=== PATIENT | female | born 1940 | race Caucasian/White ===

== ENCOUNTER 2020-05-29 02:10 | Outpatient (CLI) | payer OTHER, SELFPAY ==
[2020-05-29 18:25] LABS: SARS-CoV-2 RNA PCR Negative
== END 2020-05-29 02:11 | disposition home or self-care (01) ==
LOC: ANHCOVIDDT 02:10
PROVIDERS: Visit Provider Specialist
DX: Z01.812 Encounter for preprocedural laboratory examination (principal); Z20.828 Contact with and (suspected) exposure to other viral communicable diseases
CPT/HCPCS: 87635; C9803; U0003

== ENCOUNTER 2020-06-01 01:53 | Day surgery (SDC) | payer OTHER, SELFPAY ==
[2020-05-29 14:08] VITALS: BMI 37.3
[2020-06-01] VITALS (22 sets, daily range): BP systolic 124–166; BP diastolic 51–79; PULSE 55–67; RESP 12–19; TEMP 36.1–36.6; O2SAT 90–98; BMI 37.3
[2020-06-01 09:40] LABS: Basophils Percent Auto 0.2 % (0.2-1.2); Eosinophils Absolute Auto 0.1 K/mm3 (0-0.3); Eosinophils Percent Auto 0.6 % (0-4.4); Hematocrit 39.7 % (37.0-47.0); Hemoglobin 13.1 g/dL (12.0-15.0); Immature Granulocyte Absolute 0.02 K/mm3 (0.00-0.031); Immature Granulocyte Percent A 0.2 % (0-0.5); Lymphocytes Absolute Auto 1.74 K/mm3 (0.9-3.2); Lymphocytes Percent Auto 19.2 % (18.3-44.2); Mean Corpuscular Hemoglobin 29.8 pg (26-34); Mean Corpuscular Volume 90.2 fl (80-100); Mean Platelet Volume 10.5 fl (7.4-10.4); Monocytes Absolute Auto 0.7 K/mm3 (0.1-0.6); Monocytes Percent Auto 7.7 % (2.6-8.5); Neutrophils Absolute Auto 6.5 K/mm3 (1.3-6.7); Neutrophils Percent Auto 72.1 % (45.5-73.1); Platelet Count Result 254 k/mm3 (150-375); Red Cell Distribution Width 12.8 % (11.5-14.5)
[2020-06-01 09:51] LABS: Prothrombin Time 12.9 Seconds (11.1-14.7)
[2020-06-01 09:53] LABS: Anion Gap 7 mmol/L (8-16); Blood Urea Nitrogen 22 mg/dL (7-17); Calcium 9.8 mg/dL (8.4-10.2); Carbon Dioxide 28 mmol/L (22-30); Chloride 101 mmol/L (98-107); Estimated CRCL calculation 61 ml/min; Estimated Glomerular Filt Rate > 60; Glucose 125 mg/dL (65-105); Potassium 4.5 mmol/L (3.4-5.0); Sodium 136 mmol/L (137-145)
--- NOTE | 2020-06-01 10:19 | WPDMODSED ---
Moderate Sedation Note-Pt Data Patient Data Diagnosis: pulmonary hypertension modestly abnormal nuclear stress test Present Complaint: RODRÍGUEZ Procedure to be performed/Plan: right and left heart catheterization Allergies Allergy/AdvReac Type Severity Reaction Status Date / Time c[facility] [From [facility] [place]] Allergy Hives Verified 05/29/20 14:01 Home Medications Medication Instructions Recorded Confirmed Type acetaminophen 500 mg PO Q6H PRN 05/29/20 05/29/20 History amlodipine 10 mg PO DAILY 05/29/20 05/29/20 History aspirin 81 mg PO DAILY 05/29/20 05/29/20 History fluoxetine 20 mg PO DAILY 05/29/20 05/29/20 History furosemide 20 mg PO DAILY 05/29/20 05/29/20 History glucos sul [id number] 2 cap PO DAILY 05/29/20 05/29/20 History [Glucosamine Chondroitin] levothyroxine 88 mcg PO DAILY 05/29/20 05/29/20 History metoprolol succinate 25 mg PO DAILY 05/29/20 05/29/20 History omeprazole 20 mg PO DAILY 05/29/20 05/29/20 History potassium chloride 20 meq PO DAILY 05/29/20 05/29/20 History quinapril 40 mg PO DAILY 05/29/20 05/29/20 History rivaroxaban [Xarelto] 20 mg PO DAILY 05/29/20 05/29/20 History spironolactone 25 mg PO DAILY 05/29/20 05/29/20 History vitamin B complex [B 1 tablet PO DAILY 05/29/20 05/29/20 History Complex-Vitamin B12] vitamin E mixed [Vitamin E Complex] 1,000 unit PO DAILY 05/29/20 05/29/20 History Current Medications: Active Medications Sodium Chloride (Normal Saline Iv) 500 mls @ 100 mls/hr IV CONT .Q5H PASCUAL Sedation/Anesthesia: No previous sedation/anesthesia problems (including family history). [facility] Social History Social History Smoking status: Never smoker Alcohol intake: never Substance use: never Living arrangements: alone Spiritual care concerns: No Mod Sed Physical Exam Physical Exam Pre Procedural Exam: Normal: Neck, Throat, Airway, Lungs, Heart Size, Heart Rate, Heart Rhythm, Neuro Exam and Extremities and Variation: Appearance ( obese white female no distress) Hours since solid foods: 12 Hours since liquid intake: 12 Internal Medicine - PN: Obj Da Vital Signs Vital Signs: Vital Signs - 24 hr 06/01/20 09:41 Temperature 36.1 C L Pulse Rate 60 Respiratory Rate 14 Blood Pressure 131/59 L Pulse Oximetry 94 Meds/Results Medications: Active Medications Generic Name Dose Route Start Last Admin Trade Name Ervinq PRN Reason Stop Dose Admin Sodium Chloride 500 mls @ 100 mls/hr 06/01/20 06:25 Normal Saline Iv IV CONT .Q5H PASCUAL Labs CBC & Chem 7: 06/01/20 09:27 06/01/20 09:27 Labs: Laboratory Results - last 24 hr 06/01/20 06/01/20 06/01/20 09:27 09:27 09:27 WBC 9.0 RBC 4.40 Hgb 13.1 Hct 39.7 MCV 90.2 MCH 29.8 MCHC 33.0 RDW 12.8 Plt Count 254 MPV 10.5 H Immature Gran % (Auto) 0.2 Neut % (Auto) 72.1 Lymph % (Auto) 19.2 [place] % (Auto) 7.7 Eos % (Auto) 0.6 Baso % (Auto) 0.2 Lymph # (Auto) 1.74 [place] # (Auto) 0.7 H Eos # (Auto) 0.1 Baso # (Auto) 0.0 Abs Immat Gran (auto) 0.02 Absolute Neuts (auto) 6.5 Absolute Nucleated RBC 0.0 Nucleated RBC % 0.0 PT 12.9 INR 1.0 Sodium 136 L Potassium 4.5 Chloride 101 Carbon Dioxide 28 Anion Gap 7 L BUN 22 H Creatinine 0.70 Estim Creat Clear Calc 61 Estimated GFR > 60 Glucose 125 H Calcium 9.8 ASA Classification/Sedation ASA Classification/Sedation ASA Class: II Emergent: No Risks: Risks, benefits and alternatives explained and patient/family accepted plan for sedation. Patient re-evaluated immediately prior to sedation.
--- NOTE | 2020-06-01 10:29 | WPDMODSED ---
Moderate Sedation Note-Pt Data Patient Data Diagnosis: history of syncope etiology on determine abnormal nuclear stress test echocardiographic evidence of pulmonary hypertension obesity Present Complaint: RODRÍGUEZ Allergies Allergy/AdvReac Type Severity Reaction Status Date / Time cefaclor [From [facility]] Allergy Hives Verified 05/29/20 14:01 Home Medications Medication Instructions Recorded Confirmed Type acetaminophen 500 mg PO Q6H PRN 05/29/20 05/29/20 History amlodipine 10 mg PO DAILY 05/29/20 05/29/20 History aspirin 81 mg PO DAILY 05/29/20 05/29/20 History fluoxetine 20 mg PO DAILY 05/29/20 05/29/20 History furosemide 20 mg PO DAILY 05/29/20 05/29/20 History glucos sul [id number] 2 cap PO DAILY 05/29/20 05/29/20 History [Glucosamine Chondroitin] levothyroxine 88 mcg PO DAILY 05/29/20 05/29/20 History metoprolol succinate 25 mg PO DAILY 05/29/20 05/29/20 History omeprazole 20 mg PO DAILY 05/29/20 05/29/20 History potassium chloride 20 meq PO DAILY 05/29/20 05/29/20 History quinapril 40 mg PO DAILY 05/29/20 05/29/20 History rivaroxaban [Xarelto] 20 mg PO DAILY 05/29/20 05/29/20 History spironolactone 25 mg PO DAILY 05/29/20 05/29/20 History vitamin B complex [B 1 tablet PO DAILY 05/29/20 05/29/20 History Complex-Vitamin B12] vitamin E mixed [Vitamin E Complex] 1,000 unit PO DAILY 05/29/20 05/29/20 History Current Medications: Active Medications Sodium Chloride (Normal Saline Iv) 500 mls @ 100 mls/hr IV CONT .Q5H PASCUAL Sedation/Anesthesia: No previous sedation/anesthesia problems (including family history). [facility] Social History Social History Smoking status: Never smoker Alcohol intake: never Substance use: never Living arrangements: alone Spiritual care concerns: No Mod Sed Physical Exam Physical Exam Pre Procedural Exam: Normal: Neck, Throat, Airway, Lungs, Heart Size, Heart Rate, Heart Rhythm, Neuro Exam and Extremities and Variation: Appearance ( obese white female no distress) Hours since solid foods: 12 Hours since liquid intake: 12 Internal Medicine - PN: Obj Da Vital Signs Vital Signs: Vital Signs - 24 hr 06/01/20 09:41 Temperature 36.1 C L Pulse Rate 60 Respiratory Rate 14 Blood Pressure 131/59 L Pulse Oximetry 94 Meds/Results Medications: Active Medications Generic Name Dose Route Start Last Admin Trade Name Philip PRN Reason Stop Dose Admin Sodium Chloride 500 mls @ 100 mls/hr 06/01/20 06:25 Normal Saline Iv IV CONT .Q5H PASCUAL Labs CBC & Chem 7: 06/01/20 09:27 06/01/20 09:27 Labs: Laboratory Results - last 24 hr 06/01/20 06/01/20 06/01/20 09:27 09:27 09:27 WBC 9.0 RBC 4.40 Hgb 13.1 Hct 39.7 MCV 90.2 MCH 29.8 MCHC 33.0 RDW 12.8 Plt Count 254 MPV 10.5 H Immature Gran % (Auto) 0.2 Neut % (Auto) 72.1 Lymph % (Auto) 19.2 [place] % (Auto) 7.7 Eos % (Auto) 0.6 Baso % (Auto) 0.2 Lymph # (Auto) 1.74 [place] # (Auto) 0.7 H Eos # (Auto) 0.1 Baso # (Auto) 0.0 Abs Immat Gran (auto) 0.02 Absolute Neuts (auto) 6.5 Absolute Nucleated RBC 0.0 Nucleated RBC % 0.0 PT 12.9 INR 1.0 Sodium 136 L Potassium 4.5 Chloride 101 Carbon Dioxide 28 Anion Gap 7 L BUN 22 H Creatinine 0.70 Estim Creat Clear Calc 61 Estimated GFR > 60 Glucose 125 H Calcium 9.8 ASA Classification/Sedation ASA Classification/Sedation ASA Class: II Emergent: No Risks: Risks, benefits and alternatives explained and patient/family accepted plan for sedation. Patient re-evaluated immediately prior to sedation.
--- NOTE | 2020-06-01 10:32 | PM.IMHP ---
H&P: HPI History of Present Illness Date/Time: 06/01/20 10:32 Chief complaint: Abnormal Stress Test,Severe Pulmonary Hypertension Narrative: Pauly Calero is a 79 year old female who recently was seen in consultation by Dr. Corral of our practice and is scheduled today for me to do a right left heart catheterization. According to the records the patient has a history of syncope which occurred in January of this year she was hospitalized elsewhere and evaluated without any significant pathology being found. Following that she had a event monitor put on which apparently demonstrated a low frequency about 3% burden of atrial fibrillation. An echocardiogram was done which appeared to show evidence of significant pulmonary hypertension. After being seen in the office in consultation a nuclear stress test was requested. She is not known to have coronary disease and she is not reporting any symptoms of chest pain. The examination demonstrated normal left ventricular systolic function and anterior/anteroseptal defect that was felt to be possibly due to breast attenuation. Presumably because of these findings right left heart catheterization was recommended to evaluate her coronary artery status as well as to document her PA pressures. She was a admitted today as an outpatient for this procedure. Review of Systems Constitutional: Constitutional: Reports no additional constitutional complaints Eyes: Eyes: Reports no additional eye complaints ENT: Reports system reviewed and no additional complaints, except as documented Cardiovascular: Cardiovascular: Reports as per HPI Respiratory: Respiratory: Reports dyspnea on exertion Gastrointestinal: Gastrointestinal: Reports no additional gastrointestinal complaints Musculoskeletal: Musculoskeletal: Reports no additional musculoskeletal complaints and Reports arthralgias Neurologic: Reports system reviewed and no additional complaints, except as documented Psychiatric: Psychiatric: Reports no additional psychiatric complaints PMFSH Social History Social History Smoking status: Never smoker Alcohol intake: never Substance use: never Living arrangements: alone Spiritual care concerns: No Meds Home Medications and Allergies Home Medications Medication Instructions Recorded Confirmed Type acetaminophen 500 mg PO Q6H PRN 05/29/20 05/29/20 History amlodipine 10 mg PO DAILY 05/29/20 05/29/20 History aspirin 81 mg PO DAILY 05/29/20 05/29/20 History fluoxetine 20 mg PO DAILY 05/29/20 05/29/20 History furosemide 20 mg PO DAILY 05/29/20 05/29/20 History glucos sul [id number] 2 cap PO DAILY 05/29/20 05/29/20 History [Glucosamine Chondroitin] levothyroxine 88 mcg PO DAILY 05/29/20 05/29/20 History metoprolol succinate 25 mg PO DAILY 05/29/20 05/29/20 History omeprazole 20 mg PO DAILY 05/29/20 05/29/20 History potassium chloride 20 meq PO DAILY 05/29/20 05/29/20 History quinapril 40 mg PO DAILY 05/29/20 05/29/20 History rivaroxaban [Xarelto] 20 mg PO DAILY 05/29/20 05/29/20 History spironolactone 25 mg PO DAILY 05/29/20 05/29/20 History vitamin B complex [B 1 tablet PO DAILY 05/29/20 05/29/20 History Complex-Vitamin B12] vitamin E mixed [Vitamin E Complex] 1,000 unit PO DAILY 05/29/20 05/29/20 History Allergies Allergy/AdvReac Type Severity Reaction Status Date / Time cefaclor [From [facility]] Allergy Hives Verified 05/29/20 14:01 Vital Signs Vital Signs - 24 hr 06/01/20 09:41 Temperature 36.1 C L Pulse Rate 60 Respiratory Rate 14 Blood Pressure 131/59 L Pulse Oximetry 94 Exam Const: General: comfortable and no acute distress HENMT: Mouth: Yes moist mucous membranes Eyes: General: appearance normal, both eyes and all related structures Neck: Neck: no JVD Thyroid: thyroid normal Resp: Effort & Inspection: normal respiratory effort Auscultation: clear to auscultation bilaterally Cardio: Other: PMI not palpable first and second
--- NOTE | 2020-06-01 11:26 | WPDCARDPROC ---
Cardiac Cath Procedure Note Date of procedure:: 06/01/20 Performing physician:: Davey Rosario MD Indication:: Investigation of syncopal episode, pulmonary hypertension and abnormal nuclear stress test Brief clinical history:: this is a 79-year-old woman who had a syncopal episode several months ago. Apparently she was found to have evidence of PA hypertension by echo and a nuclear stress test has been reported as showing evidence of mid to distal anterior ischemia. Procedure Procedure performed:: Right and left heart catheterization Sedation/Medication given:: fentanyl 50 mg Versed 2 mg case start time 10:51 a.m. case end time 11:17 a.m. sedation provided by Amelia Dunn RN, trained observer Access site:: right femoral artery, right femoral vein Estimated blood loss:: 15-20 cc Procedure note:: patient was brought to the cardiac catheterization lab in the postabsorptive state the right femoral triangle was prepared and draped in usual fashion. Using the modified Seldinger technique a 5 [place] sheath was placed into the femoral artery and 7 [place] sheath into the femoral vein. Following this right heart catheterization was carried out I used an S tip balloon tip [place] catheter to measure right-sided hemodynamics and perform thermodilution cardiac outputs. Av O2 difference was then sampled. The [place] catheter was then removed. The patient then underwent measurement of left-sided hemodynamics and injecting LV g in the 30 degree WHEATLEY projection using a 5 [place] angled pigtail catheter. Pullback pressures were documented across the aortic valve. The left coronary artery was injected in multiple projections using standard 5 [place] FL4 catheter. The right coronary was injected using a standard 5 [place] JR4 catheter. An angiogram femoral artery through the sheath and it was determined the sheath will be removed with direct manual compression at the holding area. Patient left the solar lab technician no evidence of any procedural complications there was no evidence of a groin hematoma upon leaving the solar lab technician. Findings:: Hemodynamics: Right atrial pressure is 4 mmHg. Right ventricle 38 over to end-diastolic 7. Pulmonary artery pressure 38/14. Pulmonary capillary wedge pressure 8. Central aorta was 162/0 end-diastolic 8 central aorta 160/58. Left ventricle: The LV is small in a normal-sized LV contractility is hyperdynamic with an ejection fraction of greater than 80%. Left main coronary artery is widely patent has a superior takeoff. The LAD is a medium caliber artery extending down to around the apex the LAD provides significant portion of the inferoapical wall as well. The LAD and its branches are free of disease. Circumflex is a moderate caliber artery giving rise to the marginal branches the circumflex system is smooth and angiographically free of disease. Right coronary artery is large in caliber and dominant to the posterior circulation the right coronary artery is smooth and angiographically free of disease. Conclusion:: 1. Right coronary dominant circulation with no evidence of CAD. Nuclear stress is a false positive. 2. Vigorous, hyperdynamic appearing left ventricular systolic function 3. hemodynamics demonstrating normal left-sided filling pressures and minimally elevated pulmonary artery pressures. PA pressures are much lower than what was predicted echocardiographically Davey Rosario MD FACC
--- NOTE | 2020-06-01 17:55 | SUR.PHASEII ---
DISCHARGED HOME, OUT VIA WC WITH ALL PERSONAL BELONGINGS AND DISCHARGE PACKET TO DAUGHTER'S WAITING CAR. STEADY GAIT. NO DISTRESS NOTED. NO C/O VOICED.
== END 2020-06-01 17:55 | disposition home or self-care (01) ==
PROVIDERS: PCP Family Medicine; Visit Provider Specialist
PROC: 4A023N8 Measurement of Cardiac Sampling and Pressure, Bilateral, Percutaneous Approach (ICD-10-PCS; CPT 93453; principal; 2020-06-01 10:00)
DX: R94.39 Abnormal result of other cardiovascular function study (principal); R55 Syncope and collapse; I27.20 Pulmonary hypertension, unspecified; Z79.01 Long term (current) use of anticoagulants; Z79.82 Long term (current) use of aspirin
CPT/HCPCS: 36415; 80048; 85025; 85610; 93460; C1887; C1894; J0461; J1644; J2250; J3010; J7040